=== PATIENT | female | born 1975 | race African-American/Black ===

== ENCOUNTER 2025-02-14 07:33 | Emergency (ER) | payer MEDICAID ==
[~2025-02-14] VITALS: Ht 167.6 cm; Wt 73.0 kg
[2025-02-14 07:37] VITALS: O2SAT 99
[2025-02-14] MEDS: MECLIZINE 25MG TABLET PO ONE (08:57)
[2025-02-14] MEDS ORDERED: MECL-299 MT (10:25)
[2025-02-14 10:27] VITALS: BP 153/89; PULSE 55; RESP 12; TEMP 36.7; O2SAT 100
== END 2025-02-14 10:40 | disposition home or self-care (01) ==
LOC: ER 07:33
DX: R42 Dizziness and giddiness (principal); J45.909 Unspecified asthma, uncomplicated
CPT/HCPCS: 99283; 93005; J8597